=== PATIENT | female | born 1990 | race African-American/Black ===

== ENCOUNTER 2020-04-07 14:29 | Emergency (ER) | payer SELFPAY ==
[~2020-04-07] VITALS: Ht 175.3 cm; Wt 100.7 kg
[2020-04-07 14:32] VITALS: BP 122/81
--- NOTE | 2020-04-07 14:43 | NUR ---
C/O DEMISE AT 7 WEEKS, HAD US DONE LAST WEEK AT 11 WEEKS. TOOK PRESCRIBED MISOPROSTOL VAG BLEEDING ON TUESDAY NIGHT. THEN AGAIN BLEEDING STARTED TODAY. PT STATES SHE IS PASSING LARGE BLOOD CLOTS. 1 PAD EVERY HOUR. TOOK IBUPROFEN FOR CRAMPING WITH NO RELIEF. DENIES N/V/D. OBGYN DR WHITMAN 3, 1 PREVIOUS MISCARRIAGE AND
[2020-04-07] MEDS ORDERED: KETOROLAC 30 MG/ML VIAL IM ONE (15:10)
--- NOTE | 2020-04-07 15:24 | NUR ---
[facility] IM ADMINISTERED
[2020-04-07 15:48] LABS: BASOPHILS % (AUTO) 0.7 % (0.0-2.0); EOSINOPHILS # (AUTO) 0.2 K/uL (0-0.4); EOSINOPHILS % (AUTO) 2.8 % (0.0-4.0); HEMATOCRIT 36.4 % (36-48); HEMOGLOBIN 12.1 g/dL (12.0-16.0); LYMPHOCYTES # (AUTO) 2.2 K/uL (2.5-16.5); LYMPHOCYTES % (AUTO) 34.1 % (20.5-51.1); MEAN CORPUSCULAR HEMOGLOBIN 29 pg (27-31); MEAN CORPUSCULAR HGB CONC 33 g/dL (33-37); MEAN CORPUSCULAR VOLUME 86.1 fL (80-94); MONOCYTES # (AUTO) 0.4 K/uL (0.8-1.0); MONOCYTES % (AUTO) 6.8 % (1.7-9.3); NEUTROPHILS # (AUTO) 3.6 K/uL (1.8-7.7); NEUTROPHILS % (AUTO) 55.6 % (42.2-75.2); PLATELET COUNT (AUTO) 316 K/uL (140-450); RED BLOOD CELL COUNT(AUTO) 4.22 MIL/uL (4.20-5.40); RED CELL DISTRIBUTION WIDTH 12.9 % (11.6-13.7); WHITE BLOOD COUNT (AUTO) 6.5 K/uL (4.8-10.8)
--- NOTE | 2020-04-07 16:47 | NUR ---
PER DR. LU, PELVIC EXAM NO LONGER NEEDED. PT WILL MEET W/ DR. WHITMAN AND THEN BE GOOD TO GO HOME.
--- NOTE | 2020-04-07 17:02 | NUR ---
DR. WHITMAN AT BEDSIDE.
[2020-04-07 17:16] VITALS: BP 124/81
--- NOTE | 2020-04-07 17:16 | NUR ---
Patient discharged with v/s stable. Written and verbal after care instructions given and explained. Patient verbalized understanding. Ambulatory with steady gait. All questions addressed prior to discharge. Advised to follow up with PMD.
== END 2020-04-07 17:16 | disposition home or self-care (01) ==
LOC: MED 14:29
DX: O03.9 Complete or unspecified spontaneous abortion without complication (principal)
CPT/HCPCS: 36415; 76817; 84702; 85025; 86900; 86901; 96372; 99284; J1885; Q0092